=== PATIENT | male | born 1955 | race African-American/Black ===

== ENCOUNTER 2021-01-04 06:52 | Observation (INO) ==
[2021-01-04] MEDS ORDERED: *HR* FentaNYL (PF) 100 MCG/2 ML VIAL ONE ×2 (07:06→09:01)
[2021-01-04] MEDS ORDERED: *HR* Propofol 200 MG/20 ML VIAL IVP ONE (07:06)
[2021-01-04] MEDS ORDERED: *HR* Rocuronium Bromide 50 MG/5 ML VIAL ONE ×2 (07:07→09:23)
[2021-01-04] MEDS ORDERED: Ondansetron 4 MG/2 ML VIAL ONE (07:07)
[2021-01-04] MEDS ORDERED: Lidocaine -MPF 2% 2 ML VIAL ONE (07:07)
[2021-01-04] MEDS ORDERED: CeFAZolin Syr 2,000MG/20 ML 2,000 MG/20 ML SYRINGE IVPB ONE (07:17)
[2021-01-04] MEDS ORDERED: Ondansetron 4 MG/2 ML VIAL IVP PRN ×2 (07:26→17:23)
[2021-01-04] MEDS ORDERED: *HR* HYDROmorphone PF 0.5 MG/0.5 ML SYRINGE IVP PRN (07:26)
[2021-01-04] MEDS ORDERED: Ringers Solution, Lactated 1,000 ML IVC SCH (07:30)
[2021-01-04] MEDS ORDERED: Bupivacaine-MPF 0.25% 10 ML VIAL ONE (07:50)
[2021-01-04] MEDS ORDERED: *HR* HYDROMORPHONE 2 MG/ML VIAL ONE (09:00)
[2021-01-04] MEDS ORDERED: Sugammadex Sodium 200 MG/2 ML VIAL IV ONE (12:19)
[2021-01-04] MEDS ORDERED: Acetaminophen 325 MG TABLET PO PRN (17:23)
[2021-01-04] MEDS ORDERED: Naloxone 0.4 MG/ML INJ IVP PRN (17:23)
[2021-01-04] MEDS ORDERED: Ketorolac 30 MG/ML VIAL IVP PRN (17:23)
[2021-01-04] MEDS: 0.9 % Sodium Chloride 1,000 ML IVC SCH (17:41)
[2021-01-04] MEDS: *HR* Heparin 5,000 UNIT/ML VIAL SQ SCH (17:48)
[2021-01-04] MEDS: CeFAZolin 2 GM/120 ML BAG IVPB SCH (18:50)
[2021-01-05] MEDS ORDERED: Acetaminophen IV 1,000 MG/100 ML BAG IVPB ONE (00:33)
[2021-01-05] MEDS ORDERED: Simethicone 80 MG TAB.CHEW PO PRN (00:36)
[2021-01-05] MEDS: 0.9 % Sodium Chloride 1,000 ML IVC SCH (02:45)
[2021-01-05] MEDS: CeFAZolin 2 GM/120 ML BAG IVPB SCH (02:48)
[2021-01-05] MEDS: *HR* Heparin 5,000 UNIT/ML VIAL SQ SCH (05:20)
[2021-01-05 06:30] LABS: Hematocrit 36.4 % (37.5-50.1); Hemoglobin 12.1 g/dL (12.9-16.9); Mean Corpuscular HGB Conc 33.2 g/dL (31.6-35.5); Mean Corpuscular Hemoglobin 33.2 pg (28.0-33.3); Mean Corpuscular Volume 99.7 fL (83.0-100.0); Mean Platelet Volume 11.3 fL (9.4-12.4); Platelet Count 182 K/mcL (140-400); Red Blood Count 3.65 M/mcL (4.19-5.50); Red Cell Distribution Width 12.6 % (11.5-14.5); White Blood Count 18.2 K/mcL (4.3-11.1)
[2021-01-05 06:46] LABS: BUN/Creatinine Ratio 11 (6-26); Blood Urea Nitrogen 11 mg/dL (8-23); Calcium 8.1 mg/dL (8.6-10.3); Carbon Dioxide 25 mEq/L (23-29); Chloride 108 mEq/L (98-107); Glucose 105 mg/dL (70-105); Osmolality,Calculated 288 (280-300); Potassium 3.7 mEq/L (3.5-5.1); Sodium 139 mEq/L (136-145); eGFR For African Americans > 60 (> 60); eGFR For Non-African Americans > 60 (> 60)
[2021-01-05 07:28] VITALS: PULSE 68
[2021-01-05] MEDS ORDERED: Lisinopril-HCTZ 20-12.5mg TABLET PO SCH (09:00)
[2021-01-05] MEDS ORDERED: amLODIPine 5 MG TABLET PO SCH (09:00)
[2021-01-05 11:22] VITALS: BP 119/74; TEMP 98.4; O2SAT 96
== END 2021-01-05 16:04 | disposition home or self-care (01) ==
LOC: SAMDAY 06:52 → 2ANU 14:35 → INTOOBSV 14:35
PROVIDERS: ADMIT Urology; ATTEND Urology